=== PATIENT | male | born 1995 | race Two or more races ===

== ENCOUNTER 2024-06-27 17:19 | Emergency (ER) | payer SELFPAY ==
[~2024-06-27] VITALS: Ht 170.2 cm; Wt 74.8 kg
[2024-06-27 17:42] VITALS: BP 129/79; TEMP 98.7; O2SAT 98
[2024-06-27] MEDS ORDERED: CEPH500C2 PO (19:57)
== END 2024-06-27 22:39 | disposition home or self-care (01) ==
LOC: ER 17:20
DX: R09.A9 Foreign body sensation, other site (principal); R07.9 Chest pain, unspecified; R06.00 Dyspnea, unspecified
CPT/HCPCS: 71045-TC